=== PATIENT | male | born 1955 | race Caucasian/White ===

== ENCOUNTER 2022-10-09 06:42 | Day surgery (SDC) | payer MEDICAID ==
[~2022-10-09] VITALS: Ht 185.4 cm; Wt 96.3 kg
[2022-10-09 08:00] VITALS: BP 110/70
[2022-10-09 08:27] LABS: BASOPHILS % (AUTO) 0.5 % (0-1); EOSINOPHILS # (AUTO) 0.2 X10'3 (0-0.9); EOSINOPHILS % (AUTO) 2.8 % (0-6); HEMOGLOBIN 11.7 g/dl (14.0-17.9); LYMPHOCYTES # (AUTO) 1.8 X10'3 (1.1-4.8); LYMPHOCYTES % (AUTO) 23.5 % (21-51); MEAN CORPUSCULAR HEMOGLOBIN 31.9 PG (27.0-31.0); MEAN CORPUSCULAR HGB CONC 34.4 g/dL (33.0-36.5); MEAN CORPUSCULAR VOLUME 92.8 FL (78-98); MEAN PLATELET VOLUME 8.9 FL (7.4-10.4); MONOCYTES # (AUTO) 0.9 X10'3 (0-0.9); MONOCYTES % (AUTO) 11.5 % (2-12); NEUTROPHILS # (AUTO) 4.6 X10'3 (1.8-7.7); NEUTROPHILS % (AUTO) 61.7 % (42-75); PLATELET COUNT 226 X10'3 (140-440); RED BLOOD COUNT 3.66 X10'6 (4.70-6.10); RED CELL DISTRIBUTION WIDTH 13.6 % (11.5-14.5); WHITE BLOOD COUNT 7.5 X10'3 (4.5-11.0)
[2022-10-09] MEDS ORDERED: LIDOcaine 1% 30ml preserv. free vial ONE (08:49)
[2022-10-09] MEDS ORDERED: heparin sodium, porcine/PF 100unit/ml 5ML syringe ONE (08:49)
[2022-10-09] MEDS ORDERED: midazolam 1 mg/ML 2ml injection ONE ×2 (08:49→09:28)
[2022-10-09] MEDS ORDERED: fentaNYL/PF 50MCG/1 ML 2ML syringe ONE ×2 (08:49→09:29)
[2022-10-09] MEDS ORDERED: MORP15TA PO (08:53)
[2022-10-09] MEDS ORDERED: BISM262T46 PO (08:53)
[2022-10-09] MEDS ORDERED: MULT-1085 PO (08:53)
[2022-10-09] MEDS ORDERED: METO25TA6 PO (08:53)
[2022-10-09] MEDS ORDERED: ESOM20CA PO (08:53)
[2022-10-09] MEDS ORDERED: TURKEY TAIL MUSHROOM PO (09:02)
[2022-10-09] MEDS ORDERED: CBD GUMMIES PO (09:02)
[2022-10-09] MEDS ORDERED: ASPI-611 PO (09:02)
[2022-10-09] MEDS ORDERED: PITA1TAB2 PO (09:02)
[2022-10-09] MEDS ORDERED: normal saline 1000ml 1,000 ML IV SCH (09:15)
[2022-10-09 09:55] VITALS: BP 127/76
[2022-10-09 10:10] VITALS: BP 132/66
[2022-10-09 10:25] VITALS: BP 140/62
[2022-10-09 10:40] VITALS: BP 129/72
[2022-10-09 10:55] VITALS: BP 135/79
== END 2022-10-09 11:10 | disposition home or self-care (01) ==
LOC: SSTAY O 06:42
PROVIDERS: ATTEND Radiology Diagnostic Radiology
DX: C25.9 Malignant neoplasm of pancreas, unspecified (principal); I10 Essential (primary) hypertension; I25.10 Atherosclerotic heart disease of native coronary artery without angina pectoris; Z79.899 Other long term (current) drug therapy
CPT/HCPCS: 36415; 36561; 76937; 77001; 85025; 85610; 99152; 99153; C1769; C1788; J1642; J2250; J3010; J3490; J7030; A4620; C1894